=== PATIENT | male | born 1950 ===

== ENCOUNTER 2017-06-30 18:18 | Emergency (ER) | payer MEDICARE ==
[2017-06-30] MEDS ORDERED: Ondansetron INJ* 2 MG/ML VIAL IV ONE (20:19)
[2017-06-30 21:07] LABS: Hematocrit 36 % (42-52); Hemoglobin 12.1 g/dl (14.0-18.0); Mean Corpuscular HGB Conc 34 g/dl (31-36); Mean Corpuscular Hemoglobin 27 pg (27-31); Mean Corpuscular Volume 80 fL (80-94); Mean Platelet Volume 7 um3 (7.4-10.4); Red Blood Count 4.49 10^6/ul (4.0-5.4); Red Cell Distribution Width 14 % (10.5-15); White Blood Count 9.1 10^3/ul (3.5-10.8)
[2017-06-30] MEDS ORDERED: Acetaminophen TAB* 325 MG PO ONE (21:08)
[2017-06-30] MEDS ORDERED: NS 0.9% 1000 ML* 1,000 ML IV ONE ×2 (21:08→23:55)
[2017-06-30] MEDS ORDERED: Metoclopramide IV* 5 MG/ML 2 ML VIAL IV ONE (21:08)
[2017-06-30 21:22] LABS: Albumin 3.8 g/dL (3.2-5.2); BUN/Creatinine Ratio 11.9 (8-20); C Reactive Protein 146.44 mg/L (< 5.00); EGFR African American 59.9 (>60); EGFR Non-African American 46.6 (>60); Globulin 3.5 g/dL (2-4); Potassium 3.9 mmol/L (3.5-5.0); Total Bilirubin 1.8 mg/dL (0.2-1.0); Total Protein 7.3 g/dL (6.4-8.9)
[2017-06-30 21:24] LABS: Troponin I 0.01 ng/mL (<0.04)
--- NOTE | 2017-06-30 21:42 | RAD ---
Indication: Dizziness for 2 days. Fever, nausea, vomiting. Coronary artery disease. Comparison: No relevant prior exams available on the [facility] [place] for comparison. Technique: Sitting AP chest 2124 hours Report: Clear lungs and pleural spaces. Negative for pneumothorax. The heart, pulmonary vasculature, and mediastinal contours are unremarkable. Negative for free air beneath the diaphragm. Unremarkable osseous structures and soft tissue contours. IMPRESSION: No evidence for acute intrathoracic disease.
--- NOTE | 2017-06-30 21:49 | RAD ---
Indication: Dizziness, nausea, vomiting. Comparison: No relevant prior exams available on the [facility] PACS for comparison. Technique: Noncontrast CT vertex of skull through foramen magnum. 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 No acute fracture evident. Unremarkable RIGHT orbital contents. The sulci, ventricles, and basal cisterns are normal for age. Perez matter white matter differentiation is preserved without evidence for edema. No intra or extra axial hemorrhage, mass, or fluid collection detected. No suspicious calvarial or skull base lesions evident. Unremarkable scalp. Mild mucosal thickening at the LEFT sphenoid sinus. Clear mastoid air spaces. IMPRESSION: 1. No acute CT abnormality of the brain. 2. 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
[2017-06-30] MEDS ORDERED: Ondansetron INJ* 2 MG/ML VIAL ONE (22:14)
[2017-06-30 22:23] LABS: Urine Bacteria 3+ (Absent); Urine Bilirubin Negative (Negative); Urine Glucose 3+(>=500 mg/dL) (Negative); Urine Nitrite Negative (Negative)
[2017-06-30 23:42] VITALS: BP 107/60
[2017-07-01 02:43] LABS: Calcium 8.5 mg/dL (8.6-10.3); EGFR African American 62.3 (>60); EGFR Non-African American 48.5 (>60); Potassium 3.6 mmol/L (3.5-5.0)
--- NOTE | 2017-07-01 07:49 | RAD ---
HISTORY: Hematuria COMPARISONS: None TECHNIQUE: Multiple transverse and longitudinal ultrasound images were obtained of the kidneys and bladder using grayscale and color Doppler imaging. FINDINGS: RIGHT KIDNEY: The right kidney is normal in shape, size, contour, and echogenicity. There is no hydronephrosis or nephrolithiasis. The right kidney measures 13 x 5.6 x 6.4 cm. LEFT KIDNEY: The left kidney is normal in shape, size, contour, and echogenicity. There is no hydronephrosis or nephrolithiasis. The left kidney measures 13.1 x 5.3 x 5.8 cm. BLADDER: The bladder is smooth in contour. Bilateral ureteral jets are identified. The prevoid bladder volume is 105 milliliters.. The postvoid bladder volume is 31 milliliters. AORTA AND IVC: No images are submitted of the vasculature. RETROPERITONEUM: Unremarkable. PROSTATE: The prostate is homogeneous in echotexture, measuring 4.9 x 3.8 x 5.5 cm, for a volume of 53 mL. IMPRESSION: 1. NO HYDRONEPHROSIS OR NEPHROLITHIASIS. 2. 31 ML POSTVOID RESIDUAL. 3. MILDLY ENLARGED PROSTATE.
--- NOTE | 2017-07-02 12:55 | ED ---
Cabrera Worrell Benjamin, scribed for Shreyas Melchor MD on 06/30/17 at 2104 . Dizziness - HPI Summary HPI Summary: 67yo male c/o off balance like dizziness, weakness, JAMISON, and vomited x2 since 2 days ago. Pt has not been passed out or fell. Pt had hematuria. Dizziness is now resolved. Pt denies any abdominal pain and no prior hx of kidney stones. Hx of enlarged prostate 2 years ago. No problems with vision. Pt reported of having a fever at home, also mild cough. Pt has cardiac hx with 3 stents placed. Negative for prior TIA/CVA. - History Of Current Complaint Chief Complaint: EDNauseaVomitDiarrh Stated Complaint: FEVER/VOMITING/NAUSEA Time Seen by Provider: 06/30/17 20:14 Hx Obtained From: Patient, Family/Digital Composer - son in law Onset/Duration: Resolved Timing: Intermittent Episode Lasting Severity Initially: Mild Severity Currently: None Character: Weak, Dizzy - off balanced Aggravating Factor(s): Nothing Alleviating Factor(s): Nothing Associated Signs And Symptoms: Positive: Vomiting, Fever, Inability to Walk - off balance. Negative: Visual Changes - Allergies/Home Medications Allergies/Adverse Reactions: Allergies Allergy/AdvReac Type Severity Reaction Status Date / Time CI Pigment Blue 63 Allergy Rash And Verified 06/30/17 20:21 [From Pradaxa] Itching Dabigatran [From Pradaxa] Allergy Rash And Verified 06/30/17 20:21 Itching Warfarin [From Coumadin] Allergy Rash And Verified 06/30/17 20:21 Itching Yellow Dye [From Pradaxa] Allergy Rash And Verified 06/30/17 20:21 Itching Home Medications: Home Medications Aspirin TAB* [Aspirin 325 MG TAB*] 325 mg PO BEDTIME 06/30/17 [History Confirmed 06/30/17] Insulin Glargine [Lantus Solostar 5x3 ML PENS] 12 units SUBCUT BEDTIME 06/30/17 [History Confirmed 06/30/17] Prasugrel HCl [Effient] 10 mg PO DAILY 06/30/17 [History Confirmed 06/30/17] Rosuvastatin Calcium [Crestor] 20 mg PO BEDTIME 06/30/17 [History Confirmed 06/08] Silodosin(NF) [Rapaflo(NF)] 8 mg PO BEDTIME 06/30/17 [History Confirmed 06/30/17 ] metFORMIN* [Glucophage 1000 MG TAB *] 1,000 mg PO BID AC 06/30/17 [History Confirmed 06/30/17] PMH/Surg Hx/FS Hx/Imm Hx Cardiovascular History: Reports: Hx Coronary Artery Disease Infectious Disease History: No Infectious Disease History: Denies: Traveled Outside the [place] in Last 30 Days - Family History Known Family History: Positive: Cardiac Disease Negative: Renal Disease - Social History Lives: With Family Alcohol Use: None Substance Use Type: Reports: None Smoking Status (MU): Never Smoked Tobacco Review of Systems Positive: Fever Eyes: Negative ENT: Negative Cardiovascular: Negative Negative: Palpitations, Chest Pain Positive: Cough. Negative: Shortness Of Breath Positive: Vomiting, Nausea. 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 No nystagmus. ENT: pharynx nml, TM nml Neck exam: Supple, nontender Respiratory Exam: CTA, breath sounds present, no rales, no rhonchi, no wheezes Cardiovascular Exam: RRR, S1, S2, No Murmur, No rub, No gallops, pulses symmetrical Abdomen Description: Nontender, Soft, no guarding, no rebound, nondistended, no organomegaly Bowel Sounds: Present Musculoskeletal: Normal, Strength/ROM Intact Neurological Exam: nml, sens/motor intact, A&Ox3, no cerebellar dysfunction Psychological Exam: affect/mood appropriate Triage Information Reviewed: Yes Vital Signs On Initial Exam: Initial Vitals Temp Pulse Resp BP Pulse Ox 99.0 F 124 22 112/54 96 06/30/17 18:46 06/30/17 18:46 06/30/17 18:46 06/30/17 18:46 06/30/17 18:46 Vital Signs Reviewed: Yes Diagnostics - Vital Signs Vital Signs Temp Pulse Resp BP Pulse Ox 06/30/17 20:48 97.5 F 06/30/17 20:30 99 23 86/69 96 06/30/17 20:18 112 99/56 97 06/30/17 20:17 102 96 06/30/17 18:46 99.0 F 124 22 112/54 96 - Laboratory Lab Results: Lab Results 06/30/17 06/30/17 06/30/17 Range/Units 20:52 20:52 20:52 WBC 9.1 (3.5-10.8) 10^3/ul RBC 4.49 (4.0-5.4) 10^6/ul Hgb 12.1 L (14.0-18.0) g/dl Hct 36 L (42-52) % MCV 80 (80-94) fL MCH 27 (27-31) pg MCHC 34 (31-36) g/dl RDW 14 (10.5-15) % Plt Count 177 (150-450) 10^3/ul MPV 7 L (7.4-10.4) um3 Neut % (Auto) 86.3 H (38-83) % Lymph % (Auto) 7.6 L (25-47) % Mathews % (Auto) 5.9 (1-9) % Eos % (Auto) 0 (0-6) % Baso % (Auto) 0.2 (0-2) % Absolute Neuts (auto) 7.9 H (1.5-7.7) 10^3/ul Absolute Lymphs (auto) 0.7 L (1.0-4.8) 10^3/ul Absolute Monos (auto) 0.5 (0-0.8) 10^3/ul Absolute Eos (auto) 0 (0-0.6) 10^3/ul Absolute Basos (auto) 0 (0-0.2) 10^3/ul Absolute Nucleated RBC 0.01 10^3/ul Nucleated RBC % 0.1 APTT 31.0 (26.0-36.3) seconds Sodium 125 L (133-145) mmol/L Potassium 3.9 (3.5-5.0) mmol/L Chloride 92 L (101-111) mmol/L Carbon Dioxide 24 (22-32) mmol/L Anion Gap 9 (2-11) mmol/L BUN 18 (6-24) mg/dL Creatinine 1.51 H (0.67-1.17) mg/dL Est GFR ( Amer) 59.9 (>60) Est GFR (Non-Af Amer) 46.6 (>60) BUN/Creatinine Ratio 11.9 (8-20) Glucose 349 H (70-100) mg/dL Lactic Acid (0.5-2.0) mmol/L Calcium 9.0 (8.6-10.3) mg/dL Total Bilirubin 1.80 H (0.2-1.0) mg/dL AST 28 (13-39) U/L ALT 27 (7-52) U/L Alkaline Phosphatase 45 (34-104) U/L Total Creatine Kinase 77 (10-223) U/L CK-MB (CK-2) 0.5 L (0.6-6.3) ng/mL Troponin I 0.01 (<0.04) ng/mL C-Reactive Protein 146.44 H (< 5.00) mg/L Total Protein 7.3 (6.4-8.9) g/dL Albumin 3.8 (3.2-5.2) g/dL Globulin 3.5 (2-4) g/dL Albumin/Globulin Ratio 1.1 (1-3) Lipase 40 (11.0-82.0) U/L Urine Color Urine Appearance Urine pH (5-9) Ur Specific Winchester (1.010-1.030) Urine Protein (Negative) Urine Ketones (Negative) Urine Blood (Negative) Urine Nitrate (Negative) Urine Bilirubin (Negative) Urine Urobilinogen (Negative) Ur Leukocyte Esterase (Negative) Urine WBC (Auto) (Absent) Urine RBC (Auto) (Absent) Ur Squamous Epith Cells (Absent) Urine Bacteria (Absent) Urine Glucose (Negative) 06/30/17 06/30/17 07/01/17 Range/Units 20:52 22:05 01:33 WBC (3.5-10.8) 10^3/ul RBC (4.0-5.4) 10^6/ul Hgb (14.0-18.0) g/dl Hct (42-52) % MCV (80-94) fL MCH (27-31) pg MCHC (31-36) g/dl RDW (10.5-15) % Plt Count (150-450) 10^3/ul MPV (7.4-10.4) um3 Neut % (Auto) (38-83) % Lymph % (Auto) (25-47) % Mathews % (Auto) (1-9) % Eos % (Auto) (0-6) % Baso % (Auto) (0-2) % Absolute Neuts (auto) (1.5-7.7) 10^3/ul Absolute Lymphs (auto) (1.0-4.8) 10^3/ul Absolute Monos (auto) (0-0.8) 10^3/ul Absolute Eos (auto) (0-0.6) 10^3/ul Absolute Basos (auto) (0-0.2) 10^3/ul Absolute Nucleated RBC 10^3/ul Nucleated RBC % APTT (26.0-36.3) seconds Sodium 127 L (133-145) mmol/L Potassium 3.6 (3.5-5.0) mmol/L Chloride 97 L (101-111) mmol/L Carbon Dioxide 23 (22-32) mmol/L Anion Gap 7 (2-11) mmol/L BUN 19 (6-24) mg/dL Creatinine 1.46 H (0.67-1.17) mg/dL Est GFR ( Amer) 62.3 (>60) Est GFR (Non-Af Amer) 48.5 (>60) BUN/Creatinine Ratio 13.0 (8-20) Glucose 250 H (70-100) mg/dL Lactic Acid 1.5 (0.5-2.0) mmol/L Calcium 8.5 L (8.6-10.3) mg/dL Total Bilirubin (0.2-1.0) mg/dL AST (13-39) U/L ALT (7-52) U/L Alkaline Phosphatase (34-104) U/L Total Creatine Kinase (10-223) U/L CK-MB (CK-2) (0.6-6.3) ng/mL Troponin I (<0.04) ng/mL C-Reactive Protein (< 5.00) mg/L Total Protein (6.4-8.9) g/dL Albumin (3.2-5.2) g/dL Globulin (2-4) g/dL Albumin/Globulin Ratio (1-3) Lipase (11.0-82.0) U/L Urine Color Red A Urine Appearance Cloudy Urine pH 6.0 (5-9) Ur Specific Winchester 1.011 (1.010-1.030) Urine Protein 2+(100 mg/dl) H (Negative) Urine Ketones Negative (Negative) Urine Blood 3+ H (Negative) Urine Nitrate Negative (Negative) Urine Bilirubin Negative (Negative) Urine Urobilinogen Negative (Negative) Ur Leukocyte Esterase 2+ H (Negative) Urine WBC (Auto) 3+(>20/hpf) H (Absent) Urine RBC (Auto) 3+(>10/hpf) H (Absent) Ur Squamous Epith Cells Present H (Absent) Urine Bacteria 3+ H (Absent) Urine Glucose 3+(>=500 mg/dl) H (Negative) Result Diagrams: 06/30/17 20:52 07/01/17 01:33 Lab Statement: Any lab studies that have been ordered have been reviewed, and results considered in the medical decision making process. - Radiology CXR Xray Interpretation: No Acute Changes - IMPRESSION: No evidence for acute intrathoracic disease. Radiology Interpretation Completed By: Radiologist - ED physician has reviewed this radiology report and agrees. - CT Brain CT CT Interpretation: No Acute Changes - IMPRESSION: 1. No acute CT abnormality of the brain. 2. 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 CT Interpretation Completed By: Radiologist - ED physician has reviewed this radiology report and agrees. - Ultrasound No standard instances Ultrasound Interpretation: No Acute Changes - US Renal: NAD. Ultrasound Interpretation Completed By: Radiologist - ED physician has reviewed this radiology report and agrees. - EKG 2044. Cardiac Rate: NL - 98bpm EKG Rhythm: Sinus Rhythm EKG Interpretation: No acute changes. Re-Evaluation - Re-Evaluation First Eval Re-Evaluation Time: 23:29 Comment: Pt is feeling better, however his sodium level is 125. Discussed pt case with Dr. Jarrell and he recommends giving 1L fluids then re-assess his sodium level. Second Eval Re-Evaluation Time: 03:40 Change: Improved - Pt's symptoms are resolved. Dizzy Course/Dx - Course Course Of Treatment: Reviewed pts medication and allergy lists. Blood pressure noted. Discussed pt case with Dr. Jarrell (hospitalist) at 2331 hour and he recommends giving 1L fluids then re-assess his sodium level. will dispo pt after. - Diagnoses Provider Diagnoses: Dizziness, Hematuria, Hyponatremia Discharge - Discharge Plan Condition: Stable Disposition: HOME Prescriptions: Ciprofloxacin TAB* [Cipro 500 MG TAB*] 500 mg PO BID #14 tab Patient Education Materials: Hyponatremia (ED), Dizziness (ED), Hematuria (ED) Referrals: [facility] [facility] [Outside] Steve Castanon MD [Medical Doctor] - The documentation as recorded by the Cabrera mckenna Benjamin accurately reflects the service I personally performed and the decisions made by Ruiz guy Afoma Frances, MD.
--- NOTE | 2017-07-03 08:41 | PN ---
Progress Note - Progress Note Date of Service: 07/03/17 Note: Patient urine culture grew E coli>100,000. Patient placed on cipro which is sensitive to so no further action needed.
== END 2017-07-01 04:17 | disposition home or self-care (01) ==
LOC: ED 18:18
DX: R42 Dizziness and giddiness (principal); R31.9 Hematuria, unspecified; E87.1 Hypo-osmolality and hyponatremia; R11.10 Vomiting, unspecified; R50.9 Fever, unspecified; R05 Cough; R51 Headache; R54 Age-related physical debility; R53.1 Weakness
CPT/HCPCS: 36415; 70450; 71010; 76770; 80048; 80053; 81003; 81015; 82550; 82553; 83605; 83690; 84484; 85025; 85730; 86140; 87077; 87086; 87186; 93005; 96374; 96375; 99284; A9270-GY; J2405; J2765